=== PATIENT | male | born 1975 | race Caucasian/White ===

== ENCOUNTER 2016-05-01 19:52 | Observation (INO) ==
[2016-05-01] MEDS ORDERED: NS 1,000 ML IV ONE (20:18)
--- NOTE | 2016-05-01 20:22 | PROVIDER DOCUMENTATION ---
HPI-Syncope/Dizziness - General Chief Complaint: Syncope Stated Complaint: PASSED OUT IN PARKING LOT Time Seen by Provider: 05/01/16 20:02 Source: patient Allergies/Adverse Reactions: Patient Allergies Allergy/AdvReac Type Severity Reaction Status Date / Time chilkat Allergy Unknown Verified 05/01/16 20:02 Home Medications: Home Medication List Medication Instructions Recorded Confirmed Last Taken Type Amlodipine Besylate [Norvasc] 05/01/16 05/01/16 05/01/16 History Aspirin 05/01/16 05/01/16 History Carvedilol [Coreg] 05/01/16 05/01/16 History Lisinopril 20 mg 05/01/16 05/01/16 History - History of Present Illness-Syncope/Dizzy Nature of Presenting Problem: 40 Y/O M presents to ED with Syncope. Pt states that he was visit someone in the hospital this evening and as he was leaving he passed out in the Parking lot. Pt states he remembers feeling sick before the syncopal episode. Denies any history of seizures. States he has mild CP. Pt has a defibrillator which was placed in about 6 months ago. 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 Farmer in [facility]. States he has blockage in the back of his heart, states has Chron's disease. Prior Episodes: reports: no prior history Onset/Duration: reports: just prior to arrival, this evening Position/Activity at time of episode: reports: standing Context: reports: collapsed Loss of Consciousness: no loss of consciousness Location of injury. (If syncope resulted in an injury.): reports: none Current Symptoms: reports: chest pain. denies: nausea, vomiting, dizzy, headache, pale Review of Systems - Adult - REVIEW OF SYSTEMS - ADULT Constitutional: denies: chills, fever Eyes: reports: no symptoms reported Ears, Nose, Mouth & Throat: reports: no symptoms reported Cardiovascular: reports: chest pain Respiratory: denies: cough, shortness of breath Gastrointestinal: denies: abdominal pain, diarrhea, nausea, vomiting Genitourinary: reports: no symptoms reported Musculoskeletal: reports: no symptoms reported Integumentary: reports: no symptoms reported Neurological: reports: syncope. denies: dizziness/vertigo, headache/migraines, loss of balance, numbness, seizure, slurred speech Psychiatric: reports: no symptoms reported Endocrine: reports: no symptoms reported Hematologic/Lymphatic: reports: no symptoms reported Allergic/Immunologic: reports: no symptoms reported All Other Systems: Reviewed and Negative Past History - Adult - PAST MEDICAL HISTORY-ADULT Review of Records: reports: Old Records Reviewed, Nursing Assessment Review, Medications Reviewed, Social history reviewed & non-contributory. - SOCIAL HISTORY Living Situation: family Physical Exam-General - CONSTITUTIONAL General Appearance: appears well, alert, no apparent distress, obese - EYES Eyes: PERRL/EOMI, pink conjunctivae, fundi clear, no AV nicking - HEAD, EARS, NOSE, MOUTH & THROAT HENMT: normocephalic/atraumatic, moist mucous membranes, normal ENT inspection, TMs normal, pharynx normal - NECK Neck: non-tender, full range of motion, supple, normal inspection - RESPIRATORY Respiratory: chest non-tender, lungs clear, normal breath sounds - CARDIOVASCULAR Cardiovascular: normal peripheral pulses, regular rate, rhythm - GASTROINTESTINAL (ABDOMEN) Abdominal Exam: normal bowel sounds, non tender, soft - LYMPHATIC Lymphatic: no adenopathy - MUSCULOSKELETAL Back Exam: normal inspection, no CVA tenderness, no vertebral tenderness Extremity: normal range of motion, non-tender, normal gait - SKIN Integumentary: normal color, normal turgor, warm/dry - NEUROLOGIC 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06 D-Dimer Sodium 140 Potassium 3.8 Chloride 102 Carbon Dioxide 26 Anion Gap 13 BUN 10 Creatinine 1.2 Estimated GFR/1.73 m2 > 60 BUN/Creatinine Ratio 8 Glucose 110 H Calculated Osmolality 279 Calcium 9.8 Total Bilirubin 1.10 H AST 265 H ALT 156 H Alkaline Phosphatase 79 Creatine Kinase 84 98 Troponin T Total Protein 7.3 Albumin 4.4 Globulin 3.0 Albumin/Globulin Ratio 2.0 05/01/16 05/01/16 20:15 20:15 WBC RBC Hgb Hct MCV MCH MCHC RDW Std Deviation Plt Count MPV Immature Gran % (Auto) Neut % (Auto) Lymph % (Auto) Fergus % (Auto) Eos % (Auto) Baso % (Auto) Immature Gran # (Auto) Neut # (Auto) Lymph # (Auto) Fergus # (Auto) Eos # (Auto) Baso # (Auto) D-Dimer 1.46 H Sodium Potassium Chloride Carbon Dioxide Anion Gap BUN Creatinine Estimated GFR/1.73 m2 BUN/Creatinine Ratio Glucose Calculated Osmolality Calcium Total Bilirubin AST ALT Alkaline Phosphatase Creatine Kinase Troponin T < 0.010 Total Protein Albumin Globulin Albumin/Globulin Ratio Orders Category Date Time Status Admit - [facility] Routine AdmDCTranf 05/02/16 00:46 Ordered Activity - Up Ad Karen ORDERED Care 05/02/16 00:46 Active Vital Signs Order ARRIVAL TO ROOM Care 05/02/16 00:46 Active Vital Signs Order Q 4-HR ASSESS Care 05/02/16 00:46 Active Heart Healthy Diet Diet 05/02/16 00:47 Active ANGIOGRAM/PULMONARY ARTERIES [CT] Stat Exams 05/01/16 22:30 Taken CHEST-PORTABLE [RAD] Stat Exams 05/01/16 20:13 Taken CBC WITH DIFF [HEME] Stat Lab 05/01/16 20:15 Completed CK PROFILE [SP CHEM] Stat Lab 05/01/16 00:15 Completed CK PROFILE [SP CHEM] Stat Lab 05/01/16 20:15 Completed CK PROFILE [SP CHEM] Stat Lab 05/02/16 04:15 Ordered COMPREHENSIVE METABOLIC PANEL [CHEM] Stat Lab 05/01/16 20:[address] D-D[address]ER [address] [COAG] Stat Lab 05/01/16 20:15 Completed TROPONIN T Stat Lab 05/01/16 00:15 Received TROPONIN T Stat Lab 05/01/16 20:15 Completed TROPONIN T Stat Lab 05/02/16 04:15 Ordered 0.9% Sodium Chloride Inj [Ns] 1,000 ml Med 05/02/16 01:00 Active IV 125 mls/hr 0.9% Sodium Chloride Inj [Ns] 1,000 ml Med 05/01/16 20:18 Discontinued IV 999 mls/hr Acetaminophen with Codeine [Tylenol with Codeine #3] Med 05/02/16 00:50 Active 1 each PO Q4-6H PRN PRN Amlodipine [Norvasc] Med 05/02/16 01:00 Unverified DOSE UNIT RTE FREQ Aspirin Med 05/02/16 01:00 Unverified DOSE UNIT RTE FREQ Carvedilol [Coreg] Med 05/02/16 01:00 Unverified DOSE UNIT RTE FREQ Hydrocodone/APAP 7.5 mg/325 mg [Arimo-7.5] Med 05/01/16 21:37 Discontinued 1 each PO NOW ONE LISINOpril [Prinivil] Med 05/02/16 01:00 Unverified DOSE UNIT RTE FREQ EKG [EKG] Routine Ther 05/01/16 20:13 Draft EKG [EKG] Routine Ther 05/02/16 04:15 Ordered EKG [EKG] Stat Ther 05/01/16 23:12 Ordered Transfer/Admit Order [TRANSFER] Routine Transfer 05/02/16 00:48 Completed Vital Signs - 24 hr 05/01/16 05/01/16 05/02/16 20:04 21:32 00:12 Temperature 98.2 F 98.5 F 98.9 F Pulse Rate 61 66 60 Respiratory 16 18 20 Rate Blood Pressure 111/66 115/72 112/66 O2 Sat by Pulse 97 100 99 Oximetry 05/02/16 05/02/16 00:32 01:20 Temperature 97.2 F L 97.6 F Pulse Rate 60 63 Respiratory 18 18 Rate Blood Pressure 117/81 145/83 O2 Sat by Pulse 99 97 Oximetry - EKG 1 Time of EKG reading by physician:: 19:59 EKG Read and Signed by:: Clinton Mayen EKG Interpretation (*Must complete 3 of following elements*): Abnormal Rate: 59 Rhythm: Sinus Bradycardia Dugger: left (deviation) Comments: Abnormal ECG 2 Time of EKG reading by physician:: 23:58 EKG Read and Signed by:: Clinton Mayen EKG Interpretation (*Must complete 3 of following elements*): Abnormal Rate: 60 Rhythm: NSR Dugger: left QRS: LVH (Minimal vontage criteria) Comments: Abnormal ECG - CT/MRI 1 CT Study: Angiogram Impression: Normal CT Results: 1. No pulmonary embolism 2. Cardiomegaly without failure - CONSULTS/PCP/HOSPITALIST Notification #1 *Consult/PCP/Hospitalist*: Dr. Christie Time Discussed: 00:36 Reason/Comments: Admittance Consult Disposition: Admit (Admit Accepted) Departure - Departure Time of Disposition Order: 00:37 DIAGNOSIS: Syncope Qualifiers: Syncope type: unspecified Qualified Code(s): R55 - Syncope and collapse Disposition: ADMITTED INPATIENT 09 Certified Medical Emergency: Emergent Condition: Stable Attestation - Scribe Verification/Attestation Scribe:: Geri Bird Acting as Scribe for:: Clinton Mayen Scribe documention review:: This chart was documented by a scribe and accurately reflects the service the provider performed and the decisions made by the provider.
[2016-05-01 20:23] LABS: MANUAL DIFF NEEDED? NO
[2016-05-01 20:26] LABS: BASO% 0.5 % (0.0-0.8); EOS# 0.14 X1000 (0.0-0.7); EOS% 1.2 % (0.0-10.0); HEMATOCRIT 47.5 % (42.0-52.0); HEMOGLOBIN 16.4 g/dL (14.0-18.0); IMM GRAN# 0.02 X1000 (0.0-0.04); IMM GRAN% 0.2 % (0.0-0.5); MCH 30.3 PG (27-31); MCHC 34.5 g/dL (33-37); MCV 87.6 FL (81-99); MONO# 1.03 X1000 (0.11-0.59); MONO% 8.5 % (1.7-9.3); MPV 11.6 FL (7.4-10.4); NEUT% 46.6 % (42.2-75.2); PLT 280 X1000 (130-400); RBC 5.42 XMIL (4.7-6.1)
--- NOTE | 2016-05-01 20:44 | EKG Report ---
Test Performed on : 05/01/2016 7:59:48 PM Test Reason : SOB/PASS OUT Blood Pressure : / mmHG Vent. Rate : 059 BPM Atrial Rate : 059 BPM P-R Int : 132 ms QRS Dur : 102 ms QT Int : 518 ms P-R-T Axes : 018 -38 -40 degrees QTc Int : 512 ms Sinus bradycardia. Left axis deviation Minimal voltage criteria for LVH, may be normal variant Inferior infarct , age undetermined Prolonged QT Abnormal ECG No previous ECGs available Unconfirmed Result
[2016-05-01 20:49] LABS: AGAP 13; ALBUMIN 4.4 g/dL (3.5-5.0); ALKALINE PHOSPHATASE 79 U/L (32-122); BUN 10 mg/dL (8-22); CALCIUM 9.8 mg/dL (8.8-10.2); CHLORIDE 102 mmol/L (98-107); CK PROFILE 98 U/L (24-204); COSMO 279; GOT 265 U/L (10-34); GPT 156 U/L (10-44); POTASSIUM 3.8 mmol/L (3.5-5.1); SODIUM 140 mmol/L (136-145); TCO2 26 mmol/L (25-35); TOTAL PROTEIN 7.3 g/dL (6.3-8.3)
[2016-05-01] MEDS ORDERED: NORCO-7.5 PO ONE (21:37)
[2016-05-02] MEDS: NS 1,000 ML IV SCH ×3 (01:00→18:53)
[2016-05-02] MEDS: TYLENOL WITH CODEINE #3 PO PRN ×4 (01:26→21:14)
--- NOTE | 2016-05-02 03:49 | EKG Report ---
Test Performed on : 05/01/2016 11:58:43 PM Test Reason : pain Blood Pressure : / mmHG Vent. Rate : 060 BPM Atrial Rate : 060 BPM P-R Int : 178 ms QRS Dur : 106 ms QT Int : 518 ms P-R-T Axes : 045 -43 -32 degrees QTc Int : 518 ms Normal sinus rhythm. Left axis deviation Minimal voltage criteria for LVH, may be normal variant Inferior infarct (cited on or before 01-MAY-2016) Prolonged QT Abnormal ECG When compared with ECG of 01-MAY-2016 19:59, (Unconfirmed) No significant change was found Unconfirmed Result
--- NOTE | 2016-05-02 06:28 | Diag Imaging Result Document ---
PROCEDURE NAME: CHEST-PORTABLE - 05/01/2016 PORTABLE CHEST: FINDINGS: The lungs are well expanded. The heart is enlarged. The patient has a left-sided pacemaker. The vessels are not distended. No pneumonia. No pleural effusions identified. IMPRESSION: Cardiomegaly.
--- NOTE | 2016-05-02 06:54 | Diag Imaging Result Document ---
PROCEDURE NAME: ANGIOGRAM/PULMONARY ARTERIES - 05/01/2016 CT CHEST WITH INTRAVENOUS CONTRAST: FINDINGS: No pleural effusions. No thoracic aortic aneurysm or dissection. Normal opacification of the pulmonary arteries and their major branches. No enlarged mediastinal or hilar lymph nodes. There is a left-sided pacemaker. No consolidation. Atelectasis in the left base. No bronchiectasis. Limited images through the upper abdomen reveal a cholecystectomy. There may be fatty infiltration of the liver as well. IMPRESSION: 1. No pulmonary emboli. 2. Cardiomegaly. A preliminary report was given at 12:15. a.m.
[2016-05-02] MEDS: LOVENOX SUBQ SCH (13:37)
--- NOTE | 2016-05-02 14:00 | HISTORY AND PHYSICAL ---
CHIEF COMPLAINT: "I fell out yesterday." HISTORY OF PRESENTING ILLNESS: This is a 40-year-old male who presented to [facility] ER after he had a syncopal episode with some mild shortness of breath and chest pain with some nausea. States he had some generalized mild abdominal pain and pleuritic chest pain. Workup in the ER showed a slight bump in his white blood cells at 12.09. His D-dimer was 1.46. His total bilirubin was 1.10 with an AST of 265, ALT of 156. Troponin x3 sets were negative. We did a pulmonary arteriogram that showed no pulmonary emboli. He was admitted for further evaluation and treatment. PAST MEDICAL HISTORY: Of SVT, hypertension, Crohn's and a superficial thrombus related to an IV in 2016. PAST SURGICAL HISTORY: Of a defibrillator placement, cholecystectomy and heart catheterization approximately 6 months ago. FAMILY HISTORY: Of a father that of an IA and mother with cancer. SOCIAL HISTORY: He lives with family. Smokes 1 pack of cigarettes a day. Denied any alcohol or illicit drug use. ALLERGIES: [place]. HOME MEDICATIONS: We will obtain a current list of his home medications and restart as appropriate. LABORATORY DATA: Showed a white blood cell count of 12.09, a hemoglobin of 16.4 , hematocrit 47.5, platelets 280,000. D-dimer was 1.46. Sodium was 140, potassium 3.8, chloride 102, CO2 of 26, BUN of 10 with a creatinine of 1.2, glucose was 110 and total bilirubin was 1.10 , AST of 265, ALT 156, alkaline phosphatase was 79. Cardiac enzymes x3 sets were negative. Chest x-ray showed cardiomegaly. EKG showed sinus bradycardia at 59. Pulmonary arteriogram showed no pulmonary emboli and cardiomegaly. REVIEW OF SYSTEMS: He denied any fever, chills, , some dizziness prior to the syncopal episode that has resolved now along with some blurred vision that has resolved. Was positive for some pleuritic chest pain, generalized abdominal pain with some nausea yesterday. Denied any constipation, diarrhea, burning or hurting with urination. PHYSICAL EXAMINATION: On arrival temperature was 98.2 degrees, pulse 61, respirations 16, blood pressure 111/66, saturating 97% on 2 L via nasal cannula. GENERAL: This is a 40-year-old male who is lying in the bed and answers questions appropriately. HEENT: Normocephalic. The patient is noted to have an abrasion to the left side of his face from the syncopal episode. Pupils are equal, round, reactive to light. Extraocular movements are intact. Oropharynx and nares are clear. NECK: Supple. LUNGS: Clear to auscultation bilaterally with equal lung expansion and chest wall movement. HEART: With regular rate and rhythm. No murmurs, rubs, or gallops. ABDOMEN: Soft. Some generalized tenderness but no masses or bulges. Bowel sounds are present x4 quadrants. EXTREMITIES: No clubbing, cyanosis, or edema. NEUROLOGICAL: The cranial nerves 2-12 are grossly intact. ASSESSMENT: 1. Syncope. 2. Elevated D-dimer. 3. Elevated liver enzymes. 4. Hypertension. PLAN: He was admitted to the medical unit at [facility]. Placed on healthy heart diet. Will obtain an echocardiogram and a carotid ultrasound today. Will check a hepatitis profile and schedule him for an ultrasound of the abdomen in the a.m. Continue his normal saline at 125 mL an hour. We will verify his home medications and restart as appropriate. Will place him on Lovenox 40 mg subcu q.24 for DVT prophylaxis and recheck a CBC and a CMP in the a.m. Dictated by AJITH Lainez for Kirill Montiel MD pt examined, agree with echo/carotid, syncope workup, will also interrogate ICD and check le dopplers, as pt has elevated ddimer, syncope and hx of thrombophlebitis APENOT MTDD
--- NOTE | 2016-05-02 18:51 | ECHO REPORT ---
ORDER DATE: 05/02/2016 INTERPRETING PHYSICIAN: Dr. Schulte PROCEDURE: Two-dimensional echocardiogram. INDICATION: Syncope, cardiomegaly. M-MODE MEASUREMENTS: Right ventricle: 2.2 cm. Left ventricle end diastole: 5.8 cm. Left ventricle end systole: 3.9 cm. Posterior wall: 1.3 cm. Interventricular septum: 1.3 cm. Left atrium: 4.6 cm. Aortic root: 3.6 cm. SUMMARY OF 2-DIMENSIONAL IMAGING: The left ventricular chamber appears to be markedly enlarged. There is segmental wall motion abnormality involving the inferior interventricular septum, the inferior wall, and a segment of the posterior wall. 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 The right ventricle appears to be moderately enlarged. There is a pacemaker lead noted within the cavity of the right ventricle. Aortic valve shows normal opening of the cusps. Color flow mapping unremarkable. Mitral valve shows trivial degree of regurgitation. Pulse wave Doppler of mitral inflow is normal. Tissue Doppler of septal and lateral mitral anulus averages 5 cm. There is impaired left ventricular relaxation. The pulse wave Doppler of pulmonary venous flow is normal. Tricuspid valve shows mild to moderate degree of regurgitation. The inferior vena cava is not dilated. The pulmonary systolic pressure is estimated at 53 mmHg. Pulmonic valve appears to be grossly normal. There is no pericardial effusion, masses, or thrombus. SUMMARY: This study showed: 1. Significantly enlarged left ventricular chamber with moderately impaired function, ejection fraction estimated at 42% with segmental wall motion abnormality involving the inferior interventricular septum, the inferior wall, a segment of the posterior basal wall. That would be consistent or suspicious for old inferior posterior myocardial infarction. 2. Mild degree of mitral regurgitation. 3. Impaired left ventricular relaxation. 4. Mild to moderate degree of tricuspid regurgitation with a pulmonary systolic pressure estimated at 53 mmHg. Clinical correlation recommended.
[2016-05-02] MEDS: MORPHINE IV PRN ×2 (18:52→23:25)
[2016-05-02] MEDS: PRINIVIL PO SCH (22:30)
[2016-05-02] MEDS: COREG PO SCH (22:30)
[2016-05-03] MEDS: NS 1,000 ML IV SCH ×2 (02:45→10:24)
[2016-05-03] MEDS: MORPHINE IV PRN ×3 (03:33→13:04)
[2016-05-03 06:29] LABS: MANUAL DIFF NEEDED? NO
[2016-05-03 06:52] LABS: AGAP 10; ALBUMIN 3.7 g/dL (3.5-5.0); ALKALINE PHOSPHATASE 76 U/L (32-122); BASO% 0.5 % (0.0-0.8); BUN 8 mg/dL (8-22); CHLORIDE 104 mmol/L (98-107); COSMO 276; EOS# 0.16 X1000 (0.0-0.7); EOS% 2.4 % (0.0-10.0); GOT 74 U/L (10-34); GPT 184 U/L (10-44); HEMATOCRIT 43.6 % (42.0-52.0); HEMOGLOBIN 14.6 g/dL (14.0-18.0); IMM GRAN# 0.01 X1000 (0.0-0.04); IMM GRAN% 0.2 % (0.0-0.5); LYMPH# 3.61 X1000 (1.2-3.4); LYMPH% 54.9 % (20.5-51.1); MCH 29.7 PG (27-31); MCHC 33.5 g/dL (33-37); MCV 88.8 FL (81-99); MONO# 0.53 X1000 (0.11-0.59); MONO% 8.1 % (1.7-9.3); MPV 11.5 FL (7.4-10.4); NEUT% 33.9 % (42.2-75.2); PLT 177 X1000 (130-400); POTASSIUM 3.7 mmol/L (3.5-5.1); RBC 4.91 XMIL (4.7-6.1); SODIUM 139 mmol/L (136-145); TCO2 25 mmol/L (25-35); TOTAL PROTEIN 6.2 g/dL (6.3-8.3)
--- NOTE | 2016-05-03 07:08 | Extremity Venous Study ---
PROCEDURE NAME: Carotid Ultrasound - 05/02/2016 CAROTID DOPPLER ULTRASOUND: FINDINGS: RIGHT: There is normal flow in the right common carotid artery. No stenosis. No calcified plaque. Normal flow in the internal carotid artery. No plaque. Peak systolic velocity within the internal carotid artery is 2 cm per second. LEFT: There is normal flow in the left common carotid artery. No plaque or stenosis. Normal flow in the internal carotid artery. No stenosis. The peak systolic velocity in the internal carotid artery is 86 cm per second. There is antegrade flow in both vertebral arteries. IMPRESSION: No stenosis within either common carotid artery or within either internal carotid artery.
[2016-05-03] MEDS: PRINIVIL PO SCH (08:18)
[2016-05-03] MEDS: COREG PO SCH (08:19)
[2016-05-03] MEDS ORDERED: ASPIRIN PO SCH (09:00)
[2016-05-03] MEDS ORDERED: NORVASC PO SCH (09:00)
--- NOTE | 2016-05-03 10:09 | Diag Imaging Result Document ---
PROCEDURE NAME: US ABDOMEN-COMPLETE - 05/03/2016 ABDOMINAL ULTRASOUND: INDICATION: Elevated LFTs. Cholecystectomy. Crohn's disease. This examination was performed portably. FINDINGS: The abdominal aorta is of normal caliber. The pancreas is obscured by bowel gas artifact. There is a 1.3 cm calculus within the upper pole of the right kidney. There is no hydronephrosis. The liver appears echogenic most consistent with hepatic steatosis. The gallbladder is surgically absent. The common bile duct measures 5 mm. The spleen is unremarkable. IMPRESSION: Right upper pole renal calculus. No hydronephrosis. Hepatic steatosis. Status post cholecystectomy.
[2016-05-03] MEDS: LOVENOX SUBQ SCH (10:24)
[2016-05-03 12:15] LABS: HEPATITIS PROFILE ACUTE SEE COMMENTS (())
[2016-05-03 12:46] VITALS: BP 156/92
--- NOTE | 2016-05-04 06:58 | DISCHARGE SUMMARY ---
ADMISSION DATE: 05/02/2016 DISCHARGE DATE: 05/03/2016 DISCHARGE DIAGNOSES: 1. Syncope. 2. Cardiomyopathy, known. 3. Possibly acute hepatitis B. HOSPITAL COURSE BY PROBLEM LIST: Briefly, this is a 40-year-old male with history of cardiomyopathy, I think associated with SVT. He has a defibrillator which is odd, I think that may be related to his cardiomyopathy versus a true SVT. In any case, he was admitted for a syncopal episode. He had elevated liver enzymes. Elevated D-dimer, but he did fall and hit his head. Echocardiogram and ultrasound were ordered. A CTA was negative for PE. He did have some cardiomegaly. Carotid Doppler was negative for significant stenosis, which would be unlikely in a 40-year-old. Echocardiogram shows enlarged left ventricle which I think is established diagnosis. 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 He had mild to moderate tricuspid regurgitation. He is followed by Dr. Farmer in [facility]. Abdominal ultrasound showed some fatty liver changes, but was otherwise unremarkable. Telemetry did not show any significant arrhythmia. Serial cardiac enzymes were negative. His AST and ALT decreased to 74 and 184 prior to discharge and again his hepatitis panels showed a positive hepatitis B core antibody IgM, which concerns me for possible acute hepatitis B or in the acute phase. Hepatitis B surface antibody and hepatitis B and E antigen and antibody in the HBV DNA is still pending. He was felt stable for discharge. However, he was recommended to follow up with his primary inside barrel polisher, Dr. Farmer for event monitor versus other testing. Dr. Smithf to follow up with hepatitis and convalescence from hepatitis or treatment if he had turns into a chronic carrier.
--- NOTE | 2016-05-04 07:10 | Extremity Venous Study ---
PROCEDURE NAME: Venous U/S Bilateral Legs - 05/03/2016 VENOUS ULTRASOUND OF BOTH LEGS: FINDINGS: The deep veins of the lower extremities are compressible with normal color Doppler flow and augmentation. No abnormal fluid collections or masses are identified. IMPRESSION: No evidence of deep venous thrombosis.
== END 2016-05-03 14:44 | disposition home or self-care (01) ==
LOC: P.ED 19:52 → P.MEDSURG 05-02 00:57
PROVIDERS: ATTEND Internal Medicine
DX: R55 Syncope and collapse (principal); I42.9 Cardiomyopathy, unspecified; R79.1 Abnormal coagulation profile; R74.8 Abnormal levels of other serum enzymes; I10 Essential (primary) hypertension; I07.1 Rheumatic tricuspid insufficiency; R79.89 Other specified abnormal findings of blood chemistry; Z68.34 Body mass index [BMI] 34.0-34.9, adult; L24.5 Irritant contact dermatitis due to other chemical products; R07.89 Other chest pain; S00.81XA Abrasion of other part of head, initial encounter; K50.90 Crohn's disease, unspecified, without complications; T65.891A Toxic effect of other specified substances, accidental (unintentional), initial encounter; R10.84 Generalized abdominal pain; R07.81 Pleurodynia; Z95.810 Presence of automatic (implantable) cardiac defibrillator; R51 Headache; H53.9 Unspecified visual disturbance; H91.90 Unspecified hearing loss, unspecified ear; R63.5 Abnormal weight gain; W18.39XA Other fall on same level, initial encounter; F17.210 Nicotine dependence, cigarettes, uncomplicated; Z79.82 Long term (current) use of aspirin; Z86.718 Personal history of other venous thrombosis and embolism; Z79.899 Other long term (current) drug therapy; Z80.9 Family history of malignant neoplasm, unspecified; Z82.49 Family history of ischemic heart disease and other diseases of the circulatory system
CPT/HCPCS: 36415; 71010; 71275; 76700; 80053; 80074; 82550; 84484; 85025; 85379; 86706; 86707; 87350; 87517; 93005; 93306; 93880; 93970; J1650; J2270; J7030; Q9967